=== PATIENT | female | born 1955 ===

== ENCOUNTER 2018-01-01 23:24 | Emergency (ER) | payer MEDICAID ==
[2018-01-01 23:24] VITALS: BMI 29.9
[2018-01-01 23:36] VITALS: TEMP 98
[2018-01-01] MEDS ORDERED: Magnesium Sulfate 2 gm/50 ml 2 GM/50 ML BAG IV STA (23:43)
[2018-01-01] MEDS ORDERED: Albuterol-Ipratrop 3 mg / 0.5 (3 ml) UD INH STA (23:43)
[2018-01-01] MEDS ORDERED: Magnesium Sulfate 2 gm/50 ml 2 GM/50 ML BAG ONE (23:50)
[2018-01-02 00:10] LABS: BASO # 0.1 K/uL (0.0-0.2); BASO % 0.9 % (0.0-2.0); EOS # 0.6 K/uL (0.0-0.7); EOS % 6.3 % (0.0-4.0); HEMOGLOBIN 12.9 g/dL (12.0-16.0); LYMPH # 2.8 K/uL (1.0-4.3); LYMPH % 31.6 % (20.0-40.0); MEAN CELL VOLUME 92.2 fl (81.0-99.0); MEAN CORPUSCULAR HEMOGLOBIN 31.5 pg (27.0-31.0); MEAN CORPUSCULAR HGB CONC 34.1 g/dL (33.0-37.0); MEAN PLATELET VOLUME 7.7 fl (7.2-11.7); MONO # 0.8 K/uL (0.0-0.8); MONO % 8.8 % (0.0-10.0); NEUT # 4.7 K/uL (1.8-7.0); NEUT % 52.4 % (50.0-75.0); RBC 4.08 Mil/uL (3.80-5.20); RED CELL DISTRIBUTION WIDTH 13.2 % (11.5-14.5); WHITE BLOOD COUNT 8.9 K/uL (4.8-10.8)
[2018-01-02 00:16] LABS: ALB/GLOB RATIO 1.3 (1.0-2.1); ALBUMIN 4.7 g/dL (3.5-5.0); ALT/SGPT 80 U/L (9-52); AST/SGOT 81 U/L (14-36); BLOOD UREA NITROGEN 7 mg/dl (7-17); CALCIUM 9.4 mg/dL (8.4-10.2); GFR AFRICAN-AMERICAN > 60; GFR NON-AFRICAN AMERICAN > 60
--- NOTE | 2018-01-02 00:34 | ED PDOC ---
HPI: SOB/CHF/COPD Time Seen by Provider: 01/01/18 23:36 Chief Complaint (Nursing): Shortness Of Breath Chief Complaint (Provider): Shortness of Breath History Per: Patient History/Exam Limitations: no limitations Onset/Duration Of Symptoms: Days (x1) Additional Complaint(s): Araseli Mccrary is a 62 y/o female with a past medical history of erosive gastritis, asthma, sleep apnea, and diverticular disease, who presents to the ED complaining of SOB associated with wheezing, onset began x1 day ago. Patient describes a sensation of tightness in her chest and reports that she used her nebulizer but provided her minimal relief. PMD: Shaik Ravi Past Medical History Reviewed: Historical Data, Nursing Documentation, Vital Signs Vital Signs: Last Vital Signs Temp 98 F 01/01/18 23:34 Pulse 86 01/02/18 02:13 Resp 19 01/02/18 02:13 BP 150/93 H 01/02/18 02:13 Pulse Ox 96 01/02/18 02:21 - Medical History PMH: Asthma, COPD, Diverticulitis, Gastritis (erosive), HTN, Sleep Apnea Denies: Chronic Kidney Disease - Surgical History Surgical History: Denies: Appendectomy, Cholecystectomy - Family History Family History: States: Unknown Family Hx - Social History Current smoker - smoking cessation education provided: No Alcohol: None Drugs: Denies - Home Medications Home Medications: Ambulatory Orders Medication Instructions Recorded Fluticasone/Salmeterol 250/50 2 puff INH DAILY 12/15/15 [Advair Diskus 250/50] Losartan/Hydrochlorothiazide 1 tab PO DAILY 12/15/15 [Hyzaar 100-12.5 Tablet] amLODIPine [Norvasc] 5 mg PO DAILY 12/15/15 Acetaminophen with Codeine 1 tab PO Q6H PRN #15 tab 02/29/16 [Tylenol with Codeine No. 3 300 mg-30 mg] Ciprofloxacin [Cipro] 500 mg PO BID #19 tab 02/29/16 metroNIDAZOLE [Flagyl] 500 mg PO TID #29 tab 02/29/16 Oxycodone HCl/Acetaminophen 1 tab PO Q4 #5 tab 03/04/16 [Percocet 325 mg-5 mg] Albuterol HFA [Ventolin HFA 90 2 puff IH Q4H #1 puff 09/13/16 mcg/actuation (8 g)] Azithromycin [Zithromax] 250 mg PO DAILY #6 tab 09/13/16 Methylprednisolone [Medrol Dose 4 mg PO DAILY #21 tab 09/13/16 Pack (21 tabs)] Methylprednisolone [Medrol Dosepak] 4 mg PO ASDIR #1 pkg 01/02/18 - Allergies Allergies/Adverse Reactions: Allergies Allergy/AdvReac Type Severity Reaction Status Date / Time aspirin Allergy SHORTNESS Verified 01/01/18 23:34 OF BREATH Penicillins Allergy SHORTNESS Verified 01/01/18 23:34 OF BREATH Review of Systems ROS Statement: Except As Marked, All Systems Reviewed And Found Negative Respiratory: Positive for: Cough, Shortness of Breath, Wheezing Physical Exam - Physical Exam Appears: Positive for: Non-toxic, No Acute Distress Head Exam: Positive for: ATRAUMATIC, NORMOCEPHALIC Skin: Positive for: Normal Color, Warm, Dry Eye Exam: Positive for: Normal appearance, EOMI, PERRL Neck: Positive for: Normal, Painless ROM, Supple Cardiovascular/Chest: Positive for: Regular Rate, Rhythm. Negative for: Murmur Respiratory: Positive for: Wheezing (expiratory wheezing bilaterally), Respiratory Distress (mild), Other (Decreased air entry) Gastrointestinal/Abdominal: Positive for: Normal Exam, Soft. Negative for: Tenderness Back: Positive for: Normal Inspection. Negative for: L CVA Tenderness, R CVA Tenderness, Other (midline tenderness) Extremity: Positive for: Normal ROM. Negative for: Pedal Edema, Deformity Neurologic/Psych: Positive for: Alert, Oriented. Negative for: Motor/Sensory Deficits - Laboratory Results Result Diagrams: 01/01/18 23:55 01/01/18 23:55 - ECG O2 Sat by Pulse Oximetry: 96 (RA) Medical Decision Making Medical Decision Making: Time: 23:43 Initial Impression: 62 y/o female with asthma exacerbation and mild respiratory distress. Initial Plan: * EKG * Alcohol serum * CMP * EKG-ED * CBC with Differential * Chest Portable * Duoneb 9ml INH * Magnesium sulfate 2 gm/50 ml IV * SOLU-Medrol 125 mg IVP * Peak flow pre/post Time: 02:16 Labs reviewed and revealed no clinically significant abnormalities with the exception of elevated alcohol levels (206 H). --Patient reports improvement of symptoms and is stable for discharge. She was given a prescription for Methylprednisolone. Use as directed. Diagnosis is asthma exacerbation and alcohol intoxication. Return precautions provided. Scribe Attestation: Documented by Matthew Eli, acting as a scribe for Justus Mcrae MD Provider Scribe Attestation: All medical record entries made by the Scribe were at my direction and personally dictated by me. I have reviewed the chart and agree that the record accurately reflects my personal performance of the history, physical exam, medical decision making, and the department course for this patient. I have also personally directed, reviewed, and agree with the discharge instructions and disposition. Disposition - Clinical Impression Clinical Impression: Asthma exacerbation, Alcohol intoxication - Patient ED Disposition Is Patient to be Admitted: No - Disposition Disposition: Routine/Home Disposition Time: 02:16 Condition: STABLE Additional Instructions: ARASELI MCCRARY, thank you for letting us take care of you today. Your provider was Justus Mcrae MD and you were treated for ANXIETY. The emergency medical care you received today was directed at your acute symptoms. If you were prescribed any medication, please fill it and take as directed. It may take several days for your symptoms to resolve. Return to the Emergency Department if your symptoms worsen, do not improve, or if you have any other problems. Please contact your doctor or call one of the physicians/clinics you have been referred to that are listed on the Patient Visit Information form that is included in your discharge packet. Bring any paperwork you were given at discharge with you along with any medications you are taking to your follow up visit. Our treatment cannot replace ongoing medical care by a primary care provider outside of the emergency department. Thank you for allowing the [facility] team to be part of your care today. If you had an X-Ray or CT scan: A Radiologist will review the ED reading if any change in treatment is needed we will contact you. If you had a blood, urine, or wound culture: It will take several days for the results, if any change in treatment is needed we will contact you. If you had an STI test: It will take 48 hours for the results. Please call after 1 week if you have not heard back. Prescriptions: Methylprednisolone [Medrol Dosepak] 4 mg PO ASDIR #1 pkg Instructions: Asthma in Adults Forms: [facility] (Hebrew)
[2018-01-02 02:13] VITALS: BP 150/93; PULSE 86; RESP 19
[2018-01-02 02:20] VITALS: O2SAT 96
--- NOTE | 2018-01-02 09:42 | RAD ---
HISTORY: chest pain COMPARISON: Comparison chest 09/13/2016 FINDINGS: LUNGS: No active pulmonary disease. PLEURA: No significant pleural effusion identified, no pneumothorax apparent. CARDIOVASCULAR: Normal. OSSEOUS STRUCTURES: No significant abnormalities. VISUALIZED UPPER ABDOMEN: Normal. OTHER FINDINGS: None. IMPRESSION: No active disease.
--- NOTE | 2018-01-02 11:10 | CARD ---
APPROVED REPORT EKG Measurement Heart [id number] ID [id number] <Conclusion> Normal sinus rhythm Normal ECG
== END 2018-01-02 02:15 | disposition home or self-care (01) ==
LOC: H.ER 23:24
DX: J45.901 Unspecified asthma with (acute) exacerbation (principal); F10.129 Alcohol abuse with intoxication, unspecified; I10 Essential (primary) hypertension; J44.9 Chronic obstructive pulmonary disease, unspecified; G47.30 Sleep apnea, unspecified; Z88.0 Allergy status to penicillin
CPT/HCPCS: 71045; 80053; 80320; 85025; 93005; 94640; 96365; 96375; 99283; J2930

== ENCOUNTER 2018-07-30 10:22 | Emergency (ER) | payer MEDICAID ==
[2018-07-30 10:26] VITALS: BMI 30.7
--- NOTE | 2018-07-30 11:01 | ED PDOC ---
History of Present Illness History of Present Illness: This is 63 y/o F with PMH of seasonal allergies, HTN, Asthma, Sleep apnea, gastritis and diverticulosis comes to the ER c/o 1 week hx of cough, congestion, chills and body aches. + Sick contact at home with same symptoms, Patient used claritin, Belinda and nebulizer at home which helps with her symptoms somewhat. Reports good appetite and mild heavy breathing, denies any nausea, vomiting, fever, dizziness, chest pain, or abdominal pain. PMH: As HPI PSH: Denies Allg: Aspirin SH: + daily alcohol use FH: non-significant ROS: As per HPI <Daysi Sorenson - Last Filed: 07/30/18 11:35> HPI: Influenza <Daysi Sorenson - Last Filed: 07/30/18 11:35> <Tracey Davila - Last Filed: 07/30/18 15:09> Time Seen by Provider: 07/30/18 10:32 Past Medical History Vital Signs: Last Vital Signs Temp 97.8 F 07/30/18 10:24 Pulse 92 H 07/30/18 10:24 Resp 18 07/30/18 10:24 BP 135/92 H 07/30/18 10:24 Pulse Ox 98 07/30/18 10:24 - Medical History PMH: Asthma, COPD, Diverticulitis, Gastritis (erosive), HTN, Seizures, Sleep Apnea Denies: Chronic Kidney Disease - Surgical History Surgical History: Denies: Appendectomy, Cholecystectomy - Family History Family History: States: Unknown Family Hx <Daysi Sorenson - Last Filed: 07/30/18 11:35> Vital Signs: Last Vital Signs Temp 97.9 F 07/30/18 11:37 Pulse 84 07/30/18 11:37 Resp 19 07/30/18 11:37 BP 138/81 07/30/18 11:37 Pulse Ox 100 07/30/18 11:37 <Tracey Davila - Last Filed: 07/30/18 15:09> - Home Medications Home Medications: Ambulatory Orders Medication Instructions Recorded RX: Fluticasone/Salmeterol 250/50 2 puff INH DAILY 12/15/15 [Advair Diskus 250/50] RX: Losartan/Hydrochlorothiazide 1 tab PO DAILY 12/15/15 [Hyzaar 100-12.5 Tablet] RX: amLODIPine [Norvasc] 5 mg PO DAILY 12/15/15 Acetaminophen with Codeine 1 tab PO Q6H PRN #15 tab 02/29/16 [Tylenol with Codeine No. 3 300 mg-30 mg] Ciprofloxacin [Cipro] 500 mg PO BID #19 tab 02/29/16 metroNIDAZOLE [Flagyl] 500 mg PO TID #29 tab 02/29/16 Oxycodone HCl/Acetaminophen 1 tab PO Q4 #5 tab 03/04/16 [Percocet 325 mg-5 mg] Azithromycin [Zithromax] 250 mg PO DAILY #6 tab 09/13/16 Methylprednisolone [Medrol Dose 4 mg PO DAILY #21 tab 09/13/16 Pack (21 tabs)] RX: Albuterol HFA [Ventolin HFA 90 2 puff IH Q4H #1 puff 09/13/16 mcg/actuation (8 g)] Methylprednisolone [Medrol Dosepak] 4 mg PO ASDIR #1 pkg 01/02/18 Benzonatate [Tessalon Perles] 100 mg PO Q8H #20 sgl 07/30/18 - Allergies Allergies/Adverse Reactions: Allergies Allergy/AdvReac Type Severity Reaction Status Date / Time aspirin Allergy SHORTNESS Verified 07/30/18 10:44 OF BREATH Penicillins Allergy SHORTNESS Verified 07/30/18 10:44 OF BREATH Review of Systems Constitutional: Positive for: Chills. Negative for: Fever, Sweats Eyes: Negative for: Pain, Vision Change ENT: Positive for: Nose Discharge, Nose Congestion, Throat Pain. Negative for: Ear Pain, Nose Pain Cardiovascular: Negative for: Chest Pain, Palpitations Respiratory: Positive for: Cough. Negative for: Shortness of Breath, Hemoptysis Gastrointestinal: Negative for: Vomiting, Abdominal Pain Musculoskeletal: Positive for: Other (Generalized body aches ). Negative for: Neck Pain Neurological: Negative for: Weakness, Numbness, Incoordination Psych: Negative for: Anxiety <Daysi Sorenson - Last Filed: 07/30/18 11:35> Physical Exam - Physical Exam Appears: Positive for: No Acute Distress Head Exam: Positive for: NORMAL INSPECTION Skin: Positive for: Normal Color Eye Exam: Positive for: Normal appearance ENT: Positive for: Normal ENT Inspection Neck: Positive for: Normal Cardiovascular/Chest: Positive for: Regular Rate, Rhythm. Negative for: JVD, Murmur Respiratory: Positive for: Normal Breath Sounds. Negative for: Decreased Breath Sounds, Accessory Muscle Use, Crackles, Wheezing Gastrointestinal/Abdominal: Positive for: Normal Exam Extremity: Positive for: Normal ROM Neurologic/Psych: Positive for: Alert, Oriented <DeltaDaysi - Last Filed: 07/30/18 11:35> Medical Decision Making Medical Decision Making: Flu like symptoms <SorensonDaysi - Last Filed: 07/30/18 11:35> - ECG O2 Sat by Pulse Oximetry: 98 - Progress ED Course And Treament: A/P: 63 y/o F with PMH of seasonal allergies, HTN, Asthma, Sleep apnea, gastritis and diverticulosis comes to the ER c/o 1 week hx of cough, congestion, chills and body aches. - Symptomatic treatment discussed with patient - Patient agrees with discharge plan - Rx for tessalon perles - ER precautions discussed Case discussed with Dr. Davila Re-evaluation Time: 11:09 Condition: Re-examined <DeltaDaysi - Last Filed: 07/30/18 11:35> Disposition - Patient ED Disposition Is Patient to be Admitted: No - Disposition Disposition: Routine/Home Disposition Time: 11:09 <Daysi Sorenson - Last Filed: 07/30/18 11:35> <Tracey Davila - Last Filed: 07/30/18 15:09> - Clinical Impression Clinical Impression: URI with cough and congestion - Disposition Condition: GOOD Prescriptions: Benzonatate [Tessalon Perles] 100 mg PO Q8H #20 sgl Instructions: Viral Upper Respiratory Infection, Adult (DC) Forms: [employer] (Salvadorean), [facility] ED School/Work Excuse Print Language: IRISH Attending/Attestation - Attestation I have personally seen and examined this patient.: Yes I have fully participated in the care of the patient.: Yes I have reviewed all pertinent clinical information: Yes Notes (Text): 07/30/18 15:08 Evaluated patient along with resident. Agree with assessment and plan for discharged. Labs and exam unremarkable. <Tracey Davila - Last Filed: 07/30/18 15:09>
[2018-07-30 11:39] VITALS: BP 138/81; PULSE 84; RESP 19; TEMP 97.9; O2SAT 100
== END 2018-07-30 11:37 | disposition home or self-care (01) ==
LOC: H.ER 10:22
DX: J06.9 Acute upper respiratory infection, unspecified (principal); R09.89 Other specified symptoms and signs involving the circulatory and respiratory systems